=== PATIENT | female | born 1945 | race Caucasian/White ===

== ENCOUNTER → 2023-01-21 | Outpatient (CLI) | payer MEDICARE | LOC: M ONCR 14:00 | PROVIDERS: ATTEND General Practice | DX: C44.319 Basal cell carcinoma of skin of other parts of face (principal); Z85.820 Personal history of malignant melanoma of skin ==

== ENCOUNTER → 2023-07-12 | Outpatient (RCR) | payer MEDICARE | LOC: M ONCR 06-17 10:29 | PROVIDERS: ATTEND General Practice | DX: Z51.0 Encounter for antineoplastic radiation therapy (principal); C44.310 Basal cell carcinoma of skin of unspecified parts of face ==

== ENCOUNTER → 2023-08-12 | Outpatient (RCR) | payer MEDICARE | LOC: M ONCR 07-13 08:48 | PROVIDERS: ATTEND General Practice | DX: Z51.0 Encounter for antineoplastic radiation therapy (principal); C44.310 Basal cell carcinoma of skin of unspecified parts of face ==

== ENCOUNTER → 2023-09-21 | Outpatient (CLI) | payer MEDICARE | LOC: M ONCR 08:57 | PROVIDERS: ATTEND General Practice | DX: C44.319 Basal cell carcinoma of skin of other parts of face (principal) ==

== ENCOUNTER → 2024-02-28 | Outpatient (CLI) | payer MEDICARE | LOC: M ONCR 08:01 | PROVIDERS: ATTEND General Practice | DX: C44.319 Basal cell carcinoma of skin of other parts of face (principal); Z92.3 Personal history of irradiation ==